=== PATIENT | female | born 1985 | race Caucasian/White ===

== ENCOUNTER → 2016-09-07 | Outpatient (CLI) | payer OTHER ==
[~2016-09-07] MED LIST: FLEXERIL10 MG PO; PERCOCET 5-3251 EACH PO; PRENATAL VITAM1 EAC5 PO; VITAMIN D34000 UNIT PO
== END | disposition disaster alternative care site (69) ==
LOC: GLAB 08:00
DX: Z36 Encounter for antenatal screening of mother (principal)